=== PATIENT | female | born 1970 | race Caucasian/White ===

== ENCOUNTER → 2017-07-19 | Outpatient (CLI) | payer OTHER ==
--- NOTE | 2017-07-19 09:25 | BD ---
EXAMINATION TYPE: Axial Bone Density DATE OF EXAM: 07/19/2017 COMPARISON: NONE CLINICAL HISTORY: osteoarthritis Height: 5'4 Weight: 161 FRAX RISK QUESTIONS: Secondary Osteoporosis: RISK FACTORS HISTORY OF: If Premenopausal, do you have irregular periods: depo shot MEDICATIONS: Additional Medications: depo shot, starting 5-6 years Additional History: EXAM MEASUREMENTS: Bone mineral densitometry was performed using the [employer] System. Bone mineral density as measured about the Lumbar spine is: ----- L1-L4(G/cm2): 1.191 T Score Values are as follows: ----- L2: 0.2 ----- L3: 0.6 ----- L4: -0.1 ----- L1-L4: 0.1 Bone mineral density about the R hip (g/cm2): 0.944 Bone mineral density about the L hip (g/cm2): 0.957 T Score values are as follows: -----R Neck: -0.7 -----L Neck: -0.6 -----R Total: -0.3 -----L Total: -0.2 IMPRESSION: Normal (Values between +1 and -1 indicate normal bone mass). Consider repeating this study in 5 year s or sooner if there is some new clinical indication. NOTE: T-SCORE=SD OF THE YOUNG ADULT MEAN.
== END | disposition home or self-care (01) ==
LOC: RADBDWWP 08:26
PROVIDERS: ATTEND Family Medicine
DX: M19.90 Unspecified osteoarthritis, unspecified site (principal)
CPT/HCPCS: 77080

== ENCOUNTER → 2018-01-12 | Outpatient (CLI) | payer OTHER ==
--- NOTE | 2018-01-12 14:43 | MR ---
EXAMINATION TYPE: MR shoulder RT wo con DATE OF EXAM: 01/12/2018 COMPARISON: Right shoulder x-ray November 10, 2017 HISTORY: Pain in right shoulder for 6 years per patient. TECHNIQUE: Multiplanar, multisequence imaging of the right shoulder is performed without contrast. FINDINGS: Rotator Cuff: Supraspinatus and infraspinatus tendons are intact. Subscapularis tendon is intact. Rot ator cuff muscle bulk is preserved. Acromioclavicular Joint: Mild narrowing capsular hypertrophy is present. Inferior fat plane is mainta ined. Distal acromion morphology is unremarkable. Glenohumeral Joint: There is small glenohumeral joint effusion. No significant spurring is present. Labrum: The labrum appears grossly intact given limitation of non-arthrogram study. Biceps Tendon: The long head of biceps is in normal location within bicipital groove. Bone marrow signal: No focal abnormal marrow signal is appreciated. Other: No additional significant abnormality is appreciated. IMPRESSION: No rotator cuff or labral tear is present.
== END | disposition home or self-care (01) ==
LOC: RADMRIMAIN 13:07
PROVIDERS: ATTEND Orthopaedic Surgery
DX: M25.511 Pain in right shoulder (principal)

== ENCOUNTER 2021-04-02 20:27 | Emergency (ER) | payer OTHER ==
[2021-04-02 20:41] VITALS: BP 122/71; PULSE 103; RESP 20
[2021-04-02] MEDS ORDERED: SODIUM CHLORIDE 0.9% 1,000 ML IV STA (20:51)
[2021-04-02] MEDS ORDERED: KETOROLAC 15 MG/ML 1 ML VIAL IVP STA (20:51)
--- NOTE | 2021-04-02 21:01 | ED ---
General Adult HPI - General Chief complaint: Back Pain/Injury Stated complaint: POSSIBLE KIDNEY STONE Time Seen by Provider: 04/02/21 20:50 Source: patient, RN notes reviewed, old records reviewed Mode of arrival: ambulatory Limitations: no limitations - History of Present Illness Initial comments: Well-appearing pleasant 50-year-old female presents to the emergency room with complaints of 2 days of low back pain and intermittent left lower quadrant a bdominal pain over the past couple of days. She does have a history of kidney stones with last one over 20 years ago. She has not noticed any blood in her urine. She does have a low-grade fever today. She is a nonsmoker. Denies any nausea, vomiting, diarrhea, or shortness of breath or chest pain. -: days(s) (2) Location: back (low back), abdomen (llq pain) Severity scale (1-10): 6 Quality: aching, sharp Consistency: intermittent Improves with: none Worsens with: none Associated Symptoms: fever/chills Treatments Prior to Arrival: none - Related Data Home Medications Medication Instructions Recorded Confirmed medroxyPROGESTERone [Depo-Provera] 150 mg IM Q90D 04/02/21 04/02/21 Previous Rx's Medication Instructions Recorded Lidocaine [Lidoderm 5% Patch] 1 patch TRANSDERM DAILY 14 Days #7 04/02/21 patch Allergies Allergy/AdvReac Type Severity Reaction Status Date / Time No Known Allergies Allergy Verified 04/02/21 21:25 Review of Systems ROS Statement: Those systems with pertinent positive or pertinent negative responses have been documented in the HPI. ROS Other: All systems not noted in ROS Statement are negative. Past Medical History Past Medical History: No Reported History History of Any Multi-Drug Resistant Organisms: None Reported Past Surgical History: Section Past Psychological History: No Psychological Hx Reported Smoking Status: Never smoker Past Alcohol Use History: Occasional Past Drug Use History: None Reported General Exam Limitations: no limitations General appearance: alert, in no apparent distress Head exam: Present: atraumatic, normocephalic, normal inspection Eye exam: Present: normal appearance, EOMI. Absent: scleral icterus, conj unctival injection, periorbital swelling ENT exam: Present: normal exam, normal oropharynx, mucous membranes moist Neck exam: Present: normal inspection, full ROM. Absent: tenderness, meningismus, lymphadenopathy Respiratory exam: Present: normal lung sounds bilaterally. Absent: respiratory distress, wheezes, rales, rhonchi, stridor, accessory muscle use, decreased breath sounds Cardiovascular Exam: Present: tachycardia. Absent: JVD GI/Abdominal exam: Present: soft, tenderness (llq), normal bowel sounds. Absent: distended, guarding, rebound, rigid Back exam: Present: paraspinal tenderness (LS spine). Absent: CVA tenderness (R), CVA tenderness (L) Neurological exam: Present: alert, oriented X3, normal gait Psychiatric exam: Present: normal affect, normal mood Skin exam: Present: warm, dry, intact, normal color. Absent: rash, cyanosis, diaphoretic, petechiae, pallor Course Vital Signs 04/02/21 20:39 Temperature 100.7 F H Pulse Rate 103 H Respiratory 20 Rate Blood Pressure 122/71 O2 Sat by Pulse 100 Oximetry Medical Decision Making - Medical Decision Making 50-year-old female presents with complaints of 2 days of low back pain and inte rmittent left lower quadrant abdominal pain over the past couple of days. She does have a low-grade fever today. CT the abdomen and pelvis without contrast shows 6 mm calculus interpolar right kidney. No evidence of appendicitis no other acute abnormality in the abdomen and pelvis. Patient was offered Covid and influenza swabs and declined. Urinalysis is clear with no evidence of blood or signs of infection. White blood cell count is 4.0 with a low lymphocyte count 0.6. Hemoglobin and hematocrit are stable. Electrolytes are unremarkable. This is likely a viral illness and patient was directed to return to the emergency room with any new or concerning symptoms. She is directed to increase her fluid intake and use Lidoderm patches for back pain. Follow up with her primary care doctor next week. She was also given a referral to urology Tylenol and/or Motrin as needed for fevers or pain. Patient is agreeable to this plan of care. Case discussed with Dr. Lopez. - Lab Data Result diagrams: 04/02/21 21:41 04/02/21 21:41 Lab Results 04/02/21 04/02/21 04/02/21 Range/Units 20:53 21:41 21:41 WBC 4.0 (3.8-10.6) k/uL RBC 4.70 (3.80-5.40) m/uL Hgb 14.1 (11.4-16.0) gm/dL Hct 42.9 (34.0-46.0) % MCV 91.3 (80.0-100.0) fL MCH 29.9 (25.0-35.0) pg MCHC 32.7 (31.0-37.0) g/dL RDW 13.3 (11.5-15.5) % Plt Count 284 (150-450) k/uL MPV 7.0 Neutrophils % 70 % Lymphocytes % 14 % Monocytes % 11 % Eosinophils % 2 % Basophils % 1 % Neutrophils # 2.8 (1.3-7.7) k/uL Lymphocytes # 0.6 L (1.0-4.8) k/uL Monocytes # 0.5 (0-1.0) k/uL Eosinophils # 0.1 (0-0.7) k/uL Basophils # 0.0 (0-0.2) k/uL Sodium 137 (137-145) mmol/L Potassium 3.8 (3.5-5.1) mmol/L Chloride 106 (98-107) mmol/L Carbon Dioxide 23 (22-30) mmol/L Anion Gap 8 mmol/L BUN 11 (7-17) mg/dL Creatinine 0.75 (0.52-1.04) mg/dL Est GFR (CKD-EPI)AfAm >90 (>60 ml/min/1.73 sqM) Est GFR (CKD-EPI)NonAf >90 (>60 ml/min/1.73 sqM) Glucose 92 (74-99) mg/dL Plasma Lactic Acid Hao (0.7-2.0) mmol/L Calcium 9.2 (8.4-10.2) mg/dL Total Bilirubin 0.4 (0.2-1.3) mg/dL AST 17 (14-36) U/L ALT 10 (4-34) U/L Alkaline Phosphatase 68 (38-126) U/L C-Reactive Protein 0.8 (<1.0) mg/dL Total Protein 6.8 (6.3-8.2) g/dL Albumin 4.1 (3.5-5.0) g/dL Lipase 176 (23-300) U/L Urine Color Colorless Urine Appearance Clear (Clear) Urine pH 6.0 (5.0-8.0) Ur Specific [place] 1.003 (1.001-1.035) Urine Protein Negative (Negative) Urine Glucose (UA) Negative (Negative) Urine Ketones Negative (Negative) Urine Blood Negative (Negative) Urine Nitrite Negative (Negative) Urine Bilirubin Negative (Negative) Urine Urobilinogen <2.0 (<2.0) mg/dL Ur Leukocyte Esterase Negative (Negative) 04/02/21 Range/Units 21:41 WBC (3.8-10.6) k/uL RBC (3.80-5.40) m/uL Hgb (11.4-16.0) gm/dL Hct (34.0-46.0) % MCV (80.0-100.0) fL MCH (25.0-35.0) pg MCHC (31.0-37.0) g/dL RDW (11.5-15.5) % Plt Count (150-450) k/uL MPV Neutrophils % % Lymphocytes % % Monocytes % % Eosinophils % % Basophils % % Neutrophils # (1.3-7.7) k/uL Lymphocytes # (1.0-4.8) k/uL Monocytes # (0-1.0) k/uL Eosinophils # (0-0.7) k/uL Basophils # (0-0.2) k/uL Sodium (137-145) mmol/L Potassium (3.5-5.1) mmol/L Chloride (98-107) mmol/L Carbon Dioxide (22-30) mmol/L Anion Gap mmol/L BUN (7-17) mg/dL Creatinine (0.52-1.04) mg/dL Est GFR (CKD-EPI)AfAm (>60 ml/min/1.73 sqM) Est GFR (CKD-EPI)NonAf (>60 ml/min/1.73 sqM) Glucose (74-99) mg/dL Plasma Lactic Acid Hao 0.8 (0.7-2.0) mmol/L Calcium (8.4-10.2) mg/dL Total Bilirubin (0.2-1.3) mg/dL AST (14-36) U/L ALT (4-34) U/L Alkaline Phosphatase (38-126) U/L C-Reactive Protein (<1.0) mg/dL Total Protein (6.3-8.2) g/dL Albumin (3.5-5.0) g/dL Lipase (23-300) U/L Urine Color Urine Appearance (Clear) Urine pH (5.0-8.0) Ur Specific [place] (1.001-1.035) Urine Protein (Negative) Urine Glucose (UA) (Negative) Urine Ketones (Negative) Urine Blood (Negative) Urine Nitrite (Negative) Urine Bilirubin (Negative) Urine Urobilinogen (<2.0) mg/dL Ur Leukocyte Esterase (Negative) Disposition Clinical Impression: Back pain Disposition: HOME SELF-CARE Instructions (If sedation given, give patient instructions): Acute Low Back Pain (ED) Additional Instructions: Today we completed a workup for your back pain. Sometimes we cannot always find the cause of your symptoms in 1 ER visit. The findings on your exam today and in your blood work and imaging is reassuring. At this time it is not 100% certain what is causing your symptoms. We feel you can be discharged from the emergency room. It is possible this pain may worsen or get better. Please return to the emergency room if you have any new or concerning symptoms. Otherwise follow-up with the primary care doctor in a couple of days and urology. Tylenol and/or Motrin as needed for fever and body aches. Increase your fluid intake. I have provided a referral to urology regarding non-obstructing 6mm calculus interpolar right kidney. Prescriptions: Lidocaine [Lidoderm 5% Patch] 1 patch TRANSDERM DAILY 14 Days #7 patch Is patient prescribed a controlled substance at d/c from ED?: No Referrals: Perry Peres DO [Primary Care Provider] - 1-2 days Time of Disposition: 22:47
[2021-04-02] MEDS ORDERED: ACETAMINOPHEN TAB 325 MG TAB PO STA (21:03)
[2021-04-02 21:04] LABS: Appearance,Urine Clear (Clear); Bilirubin,Urine Negative (Negative); Blood,Urine Negative (Negative); Color,Urine Colorless; Glucose,Urine (UA) Negative (Negative); Ketones,Urine Negative (Negative); Leukocyte Esterase,Urine Negative (Negative); Nitrite,Urine Negative (Negative); Protein,Urine Negative (Negative); Specific Gravity,Urine 1.003 (1.001-1.035); Urobilinogen,Urine <2.0 mg/dL (<2.0)
--- NOTE | 2021-04-02 22:05 | CT ---
EXAMINATION TYPE: CT abdomen pelvis wo con DATE OF EXAM: 04/02/2021 COMPARISON: None HISTORY: flank pain CT DLP: 597.5 mGycm Automated exposure control for dose reduction was used. Images obtained from the diaphragm to the follow-up pelvis with no contrast. The lung bases are clear. There is no pleural effusion. Heart size is normal. There is no pericardial effusion. Liver spleen stomach pancreas gallbladder appear intact. The bile ducts are not dilated. There is no adrenal mass. Kidneys have normal size. There is 6 mm calculus interpolar right kidney. B ladder distends smoothly. There is no inguinal hernia. The uterus is anteverted. There is no evidence of a pelvic mass. There is no free fluid in the pelvis. There is no retroperitoneal adenopathy. There is no mesenteric edema. There is no ascites or free air. There is no sign of a bowel obstructio n. The lumbar vertebrae have normal alignment. Disc spaces are fairly normal. There is no compression fracture. Posterior elements are intact. Facet joints are intact. Sacroiliac joints are intact. IMPRESSION: Nonobstructing right renal calculus. No evidence of appendicitis. No acute abnormality in the abdomen pelvis.
[2021-04-02 22:27] LABS: Basophils % (A) 1 %; Eosinophils # (A) 0.1 k/uL (0-0.7); Eosinophils % (A) 2 %; HCT 42.9 % (34.0-46.0); HGB 14.1 gm/dL (11.4-16.0); Lymphocytes # (A) 0.6 k/uL (1.0-4.8); Lymphocytes % (A) 14 %; MCH 29.9 pg (25.0-35.0); MCHC 32.7 g/dL (31.0-37.0); MCV 91.3 fL (80.0-100.0); Monocytes # (A) 0.5 k/uL (0-1.0); Monocytes % (A) 11 %; Neutrophils # (A) 2.8 k/uL (1.3-7.7); Neutrophils % (A) 70 %; Platelet Count 284 k/uL (150-450); RDW 13.3 % (11.5-15.5)
[2021-04-02 22:40] LABS: ALT 10 U/L (4-34); AST 17 U/L (14-36); African American GFR (CKD) >90 (>60 ml/min/1.73 sqM); Albumin 4.1 g/dL (3.5-5.0); Alkaline Phosphatase 68 U/L (38-126); Anion Gap 8 mmol/L; Blood Urea Nitrogen 11 mg/dL (7-17); C Reactive Protein 0.8 mg/dL (<1.0); Calcium 9.2 mg/dL (8.4-10.2); Carbon Dioxide 23 mmol/L (22-30); Chloride 106 mmol/L (98-107); Glucose 92 mg/dL (74-99); Lipase 176 U/L (23-300); Non-African American GFR(CKD) >90 (>60 ml/min/1.73 sqM); Potassium 3.8 mmol/L (3.5-5.1); Sodium 137 mmol/L (137-145); Total Bilirubin 0.4 mg/dL (0.2-1.3); Total Protein 6.8 g/dL (6.3-8.2)
[2021-04-02] MEDS ORDERED: ACET/COD 300 MG/30 MG STARTER PACK 6 TAB BTL PO STA (22:54)
[2021-04-02] MEDS ORDERED: LIDOCAINE 5% PATCH TOPICAL SCH (23:00)
[2021-04-02 23:16] VITALS: TEMP 97.9
== END 2021-04-02 23:23 | disposition home or self-care (01) ==
LOC: EC 20:27
DX: M54.9 Dorsalgia, unspecified (principal)
CPT/HCPCS: 36415; 80053; 83605; 83690; 85025; 86140; 81003; 87040; 87077; 87186; 74176; 99284; 96374; J1885

== ENCOUNTER → 2021-07-21 | Outpatient (CLI) | payer OTHER ==
--- NOTE | 2021-07-22 08:04 | XR ---
EXAMINATION TYPE: XR abdomen 1V DATE OF EXAM: 07/21/2021 Comparison: CT 04/02/2021 Clinical History: 51-year-old female N20.2, assess for right-sided kidney stone Findings: Lung bases are clear. No evidence for free intraperitoneal air. Mild stool burden. Redemonstrated 4 m m right renal calculus. Redemonstrated a couple right-sided pelvic phlebolith. Impression: Known 4 mm right renal calculus.
== END | disposition home or self-care (01) ==
LOC: RADXRMAIN 16:28
PROVIDERS: ATTEND Family Medicine
DX: N20.2 Calculus of kidney with calculus of ureter (principal); N22 Calculus of urinary tract in diseases classified elsewhere
CPT/HCPCS: 74018